=== PATIENT | male | born 1975 | race Hispanic/Latino ===

== ENCOUNTER 2018-01-20 08:59 | Day surgery (SDC) | payer MEDICAID ==
[2018-01-19 12:24] VITALS: BP 136/83
[2018-01-19 12:31] LABS: BASOPHILS % (AUTO) 0.6 % (0.0-5.0); EOSINOPHILS % (AUTO) 1.8 % (0.0-8.0); HEMATOCRIT 44.1 % (42-54); LYMPHOCYTES % (AUTO) 30.4 % (21.0-51.0); MEAN CORPUSCULAR HEMOGLOBIN 29.4 pg (27.0-33.0); MEAN CORPUSCULAR HGB CONC 34.1 g/dL (32.0-36.0); MEAN CORPUSCULAR VOLUME 86.2 fL (79-99); MONOCYTES % (AUTO) 6.4 % (3.0-13.0); NEUTROPHILS % (AUTO) 60.8 % (40.0-77.0); NUCLEATED RED BLOOD CELLS 0.1 % (0.0-0.19); PLATELET COUNT (AUTO) 215 K/uL (130-400); RED BLOOD CELL COUNT(AUTO) 5.12 MIL/uL (4.50-6.20); RED CELL DISTRIBUTION WIDTH 13.7 % (11.0-15.5); WHITE BLOOD COUNT (AUTO) 8.2 K/uL (4.8-10.8)
[2018-01-19 12:35] LABS: APPEARANCE,URINE Clear (CLEAR); BILIRUBIN,URINE Negative (NEGATIVE); COLOR,URINE Yellow (YELLOW); GLUCOSE, URINE (UA) Negative (NEGATIVE); KETONES,URINE Negative (NEGATIVE); LEUKOCYTE ESTERASE ,URINE Negative (NEGATIVE); NITRATE,URINE Negative (NEGATIVE); OCCULT BLOOD,URINE Negative (NEGATIVE); PH,URINE 7.5 (5.0-8.0); PROTEIN,URINE Negative (NEGATIVE); UROBILINOGEN,URINE 0.2 mg/dL (0.2-1.0)
[2018-01-19 12:43] LABS: POTASSIUM 3.8 mmol/L (3.5-5.1)
[2018-01-19 12:47] LABS: PARTIAL THROMBOPLASTIN TIME 27.8 SEC (26.3-35.5); PROTHROMBIN TIME 10.5 SEC (9.6-11.6)
[2018-01-20] VITALS (17 sets, daily range): BP systolic 102–133; BP diastolic 51–78
[~2018-01-20] VITALS: Ht 162.6 cm; Wt 73.8 kg
[~2018-01-20 08:59] MED LIST: ATOR40TA71 PO; BUSP15TA3 PO; CEFAZOLIN SODIUM 1 GM VIAL IVP SCH; LISI-613 PO; METF-446 PO; PHEN100C23 PO; SERT100T12 PO; SITA100T12 PO
[2018-01-20] MEDS ORDERED: CEFAZOLIN SODIUM 1 GM VIAL ONE (10:12)
[2018-01-20] MEDS ORDERED: SODIUM CHLORIDE 0.9% 1000ML 1,000 ML IV ONE (10:12)
[2018-01-20] MEDS ORDERED: SUCCINYLCHOLINE 200MG/10ML SYR ONE (10:51)
[2018-01-20] MEDS ORDERED: DEXAMETHASONE SOD PHOSPHATE 10MG/ML 1ML VIAL ONE (10:51)
[2018-01-20] MEDS ORDERED: LIDOCAINE PF 2% 5ML ABBOJECT ONE (10:51)
[2018-01-20] MEDS ORDERED: PROPOFOL 10 MG/ML 20ML VIAL IV ONE (10:51)
[2018-01-20] MEDS ORDERED: GLYCOPYRROLATE 1 MG/5 ML SYRINGE ONE (10:51)
[2018-01-20] MEDS ORDERED: ROCURONIUM 10MG/1ML SYR 10 MG/ML ML ONE (10:52)
[2018-01-20] MEDS ORDERED: FENTANYL CITRATE PF 50 MCG/1 ML 2ML VIAL ONE (10:52)
[2018-01-20] MEDS ORDERED: MIDAZOLAM HCL 1 MG/ML 2ML VIAL ONE (10:52)
[2018-01-20] MEDS ORDERED: CITRIC ACID/SODIUM CITRATE 30 ML UDCUP ONE (11:01)
[2018-01-20] MEDS ORDERED: EPHEDRINE SULFATE 50 MG/ML AMPULE ONE (11:27)
[2018-01-20] MEDS ORDERED: NEOSTIGMINE 5MG/5ML SYR IV ONE (11:57)
== END 2018-01-20 14:10 | disposition home or self-care (01) ==
LOC: UNDOADMOB 08:59 → DAH 08:59 → DAHIP 08:59 → DAH 14:10
DX: T85.698A Other mechanical complication of other specified internal prosthetic devices, implants and grafts, initial encounter (principal); I10 Essential (primary) hypertension; E78.00 Pure hypercholesterolemia, unspecified; R56.9 Unspecified convulsions; R32 Unspecified urinary incontinence; E11.9 Type 2 diabetes mellitus without complications; F32.9 Major depressive disorder, single episode, unspecified; F41.9 Anxiety disorder, unspecified; Z87.81 Personal history of (healed) traumatic fracture; Z98.890 Other specified postprocedural states; Z79.899 Other long term (current) drug therapy; Z82.49 Family history of ischemic heart disease and other diseases of the circulatory system; Z83.3 Family history of diabetes mellitus; Z79.84 Long term (current) use of oral hypoglycemic drugs
CPT/HCPCS: 20680; 36415; 76000; 80051; 80185; 81003; 82948 ×2; 85025; 85610; 85730; 88300; A4930; A6223; J0330; J0690; J1100; J2001; J2250; J2704; J2710; J3010; J3490 ×2; J7030

== ENCOUNTER 2019-07-01 23:28 | Emergency (ER) | payer MEDICAID ==
[~2019-07-01 23:28] MED LIST changes: -CEFAZOLIN SODIUM 1 GM VIAL IVP SCH
== END 2019-07-02 00:16 | disposition home or self-care (01) ==
LOC: EDH 23:28
DX: S91.341A Puncture wound with foreign body, right foot, initial encounter (principal); E11.9 Type 2 diabetes mellitus without complications; I10 Essential (primary) hypertension; E78.5 Hyperlipidemia, unspecified; W45.0XXA Nail entering through skin, initial encounter; Y93.89 Activity, other specified; Y92.89 Other specified places as the place of occurrence of the external cause; Y99.8 Other external cause status

== ENCOUNTER 2023-12-18 13:19 | Emergency (ER) | payer MEDICAID ==
[~2023-12-18] VITALS: Ht 170.2 cm; Wt 77.1 kg
[~2023-12-18 13:19] MED LIST changes: -LISI-613 PO; +LISI20TA24 PO; +SERT-440 PO; -SERT100T12 PO
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
[2023-12-18] MEDS: teTANUS/diphthERIA TOXOID [ADULT] 0.5 ML VIAL IM ONE (13:50)
[2023-12-18] MEDS: acetaMINOPHEN 500 MG TABLET PO ONE (13:51)
--- NOTE | 2023-12-18 14:25 | HMCIMG ---
LEFT WRIST RADIOGRAPHS - 3 VIEWS INDICATION: Pain COMPARISON: None FINDINGS: AP, lateral, and oblique views. No evidence for acute fracture or subluxation. Scaphoid bone is intact. Ulnar variance is within normal limits. Carpal alignment is well maintained. No radiopaque foreign body noted. IMPRESSION: No evidence for fracture or dislocation.
[2023-12-18 14:26] VITALS: BP 146/88; PULSE 80; RESP 16; TEMP 98.7; O2SAT 98
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
[2023-12-18] MEDS ORDERED: IBUP-2077 PO (14:32)
== END 2023-12-18 14:45 | disposition home or self-care (01) ==
LOC: EDH 13:19
DX: S00.83XA Contusion of other part of head, initial encounter (principal); S60.212A Contusion of left wrist, initial encounter; S00.81XA Abrasion of other part of head, initial encounter; E11.9 Type 2 diabetes mellitus without complications; E78.00 Pure hypercholesterolemia, unspecified; I10 Essential (primary) hypertension; Z79.84 Long term (current) use of oral hypoglycemic drugs; Z79.899 Other long term (current) drug therapy; Y04.0XXA Assault by unarmed brawl or fight, initial encounter; Y93.89 Activity, other specified; Y92.89 Other specified places as the place of occurrence of the external cause; Y99.8 Other external cause status
CPT/HCPCS: 70200; 73110; 90471; 90714